=== PATIENT | female | born 1955 | race Caucasian/White ===

== ENCOUNTER → 2016-12-15 | Outpatient (CLI) | payer OTHER ==
[2015-10-09 12:19] VITALS: BP 90/48
[~2016-12-15] MED LIST: ASCO500C PO; CELE200C PO; CIPR250T PO; CYAN10005 PO; CYAN500T PO; DOCU50CA9 PO; FAMO40TA4 PO; FERR-26 PO; LISI10TA2 PO; OXYC-323 PO; Oxycodone Hcl/Acetaminophen PO; PIPE2.257 IV; PIPE4.5F2 IV; RANI150C PO; SENN8.6T11 PO; SERT100T8 PO
--- NOTE | 2016-12-16 20:48 | SLEEP ---
DATE OF STUDY: ATTENDING PHYSICIAN: Fredi Holm MD DATE OF STUDY: 12/15/2016 Laura is 61 years old who weighs 290 pounds with a BMI of 54. Foosland score was 7. Sleep study was performed at [facility]. During the night study, the patient spent 434 minutes in bed and slept for 354 minutes with a sleep efficiency of 80%. Sleep latency was 30 minutes with an absent REM sleep. Overall, sleep architecture showed increased stage 1 and stage 2 sleep, normal slow wave and absent REM sleep. During the night of study, the patient had 6 obstructive apneas, no mixed or central apneas. There were 3 hypopneas. The patient's apnea hypopnea index was 2 per hour. Supine index 1 per hour and absent REM AHI due to lack of REM sleep. Review of nocturnal oximetry study revealed a mean oxygen saturation of 96% with lowest of 88%. PLMS were seen at the index of 96 per hour and 5 per hour caused EEG arousals. EKG monitoring revealed average heart rate of 78 beats per minute. No sustained arrhythmias were observed. Due to low AHI, the patient did not meet the split night criteria for CPAP initiation. IMPRESSION: 1. No clinically significant sleep disordered breathing. 2. No clinically significant nocturnal hypoxia. 3. Severe PLMS at an index of 96 per hour and 5 per hour caused EEG arousals. RECOMMENDATIONS: 1. The patient did not meet the split night criteria for CPAP initiation. 2. Weight loss is strongly advised. 3. Avoid [employer] depressants. 4. The patient's PLMS can be treated with dopaminergic agonist agents if patient is clinically symptomatic. The patient should also be further evaluated for symptoms of restless legs during the day. PARK PERDOMO MD DR: MARA/sarita JOB#: [id number] / [id number]
== END | disposition home or self-care (01) ==
LOC: SLPLAB 18:40
PROVIDERS: ATTEND Internal Medicine Critical Care Medicine
DX: G47.33 Obstructive sleep apnea (adult) (pediatric) (principal)
CPT/HCPCS: 95810

== ENCOUNTER → 2017-05-11 | Outpatient (CLI) | payer OTHER ==
[2015-10-09 12:19] VITALS: BP 90/48
--- NOTE | 2017-05-12 10:44 | RAD ---
DATE: 05/12/2017. EXAM: MAMMO JERE SCREENING BILATERAL. HISTORY: Routine mammographic screening. COMPARISON: 04/12/2016, 04/28/2015. This study was interpreted with the benefit of Computerized Aided Detection (CAD). FINDINGS: The breast parenchyma heterogeneously dense, which could reduce sensitivity of mammography. There are scattered calcifications on the right greater than left, some of which form clusters. These are stable. A coarse calcifications bilaterally on the right is stable. There are no suspicious masses, microcalcifications or architectural distortion. BI-RADS CATEGORY: 2 BENIGN FINDING(S). RECOMMENDED FOLLOW-UP: 12M 12 MONTH FOLLOW-UP. PQRS compliance statement: Patient information was entered into a reminder system with a target due date 05/12/2018 for the next mammogram. Mammography is a sensitive method for finding small breast cancers, but it does not detect them all and is not a substitute for careful clinical examination. A negative mammogram does not negate a clinically suspicious finding and should not result in delay in biopsying a clinically suspicious abnormality. "Our facility is accredited by the [employer] Mammography Program."
== END | disposition home or self-care (01) ==
LOC: KCIC MAMMO 12:24
PROVIDERS: ATTEND Obstetrics & Gynecology
DX: Z12.31 Encounter for screening mammogram for malignant neoplasm of breast (principal)
CPT/HCPCS: 77063; G0202; 77067

== ENCOUNTER → 2018-01-31 | Day surgery (SDC) | payer OTHER ==
[~2018-01-31] MED LIST changes: -ASCO500C PO; -CELE200C PO; -CIPR250T PO; -CYAN10005 PO; -CYAN500T PO; -DOCU50CA9 PO; -FAMO40TA4 PO; -FERR-26 PO; +LIDOCAINE 1% PF 2 ML VIAL. ID; -LISI10TA2 PO; +ONDANSETRON PF 4 MG/2 ML VIAL. IV; -OXYC-323 PO; -Oxycodone Hcl/Acetaminophen PO; -PIPE2.257 IV; -PIPE4.5F2 IV; +PROCHLORPERAZINE 10 MG/2 ML VIAL. IV; +PROPOFOL 20 ML IV; -RANI150C PO; -SENN8.6T11 PO; -SERT100T8 PO; +fentaNYL PF VIAL 100 MCG/2 ML VIAL IV
[2018-01-31] MEDS: IV RINGERS,LACTATED 1000ML 1,000 ML IV (08:49)
== END | disposition home or self-care (01) ==
LOC: ENDOS 08:18
DX: K74.69 Other cirrhosis of liver (principal); K21.9 Gastro-esophageal reflux disease without esophagitis; E66.01 Morbid (severe) obesity due to excess calories; D69.6 Thrombocytopenia, unspecified; F32.9 Major depressive disorder, single episode, unspecified; F41.9 Anxiety disorder, unspecified; D64.9 Anemia, unspecified; I10 Essential (primary) hypertension; D50.9 Iron deficiency anemia, unspecified; Z87.19 Personal history of other diseases of the digestive system; Z79.899 Other long term (current) drug therapy; Z88.6 Allergy status to analgesic agent
CPT/HCPCS: 43235; J2704

== ENCOUNTER → 2018-02-02 | Outpatient (CLI) | payer OTHER | END | disposition home or self-care (01) | LOC: US 07:52 | DX: R18.8 Other ascites (principal) | CPT/HCPCS: 76705 ==

== ENCOUNTER → 2018-02-16 | Outpatient (CLI) | payer OTHER ==
[2018-02-16] MEDS: IOHEXOL 300 MG/ML 100ML VIAL. IV (08:45)
[2018-02-16] MEDS: IOHEXOL 240 MG/ML 50ML VIAL. PO (08:45)
== END | disposition home or self-care (01) ==
LOC: CT 08:27
DX: J90 Pleural effusion, not elsewhere classified (principal); M47.896 Other spondylosis, lumbar region; I10 Essential (primary) hypertension; J45.909 Unspecified asthma, uncomplicated; R91.1 Solitary pulmonary nodule; R16.1 Splenomegaly, not elsewhere classified
CPT/HCPCS: 74177; Q9966; Q9967

== ENCOUNTER → 2018-07-06 | Outpatient (CLI) | payer OTHER ==
[2018-01-31 09:46] VITALS: BP 122/57
[~2018-07-06] MED LIST changes: +ASCO500C PO; +CELE200C PO; +CIPR250T PO; +CYAN10005 PO; +CYAN500T PO; +DOCU50CA9 PO; +FAMO40TA4 PO; +FERR325T14 PO; -LIDOCAINE 1% PF 2 ML VIAL. ID; +LISI10TA2 PO; -ONDANSETRON PF 4 MG/2 ML VIAL. IV; +OXYC-323 PO; +Oxycodone Hcl/Acetaminophen PO; +PIPE2.257 IV; +PIPE4.5F2 IV; -PROCHLORPERAZINE 10 MG/2 ML VIAL. IV; -PROPOFOL 20 ML IV; +RANI150C PO; +SENN8.6T11 PO; +SERT100T8 PO; +VITA400C36 PO; -fentaNYL PF VIAL 100 MCG/2 ML VIAL IV
--- NOTE | 2018-07-06 16:23 | KCIC ---
Bilateral digital screening mammograms with 3-D tomosynthesis: Reason for examination: Routine screening. Comparison is made to previous studies dated 05/11/2017 and 04/12/2016. Bilateral mammograms in CC and oblique projections were obtained with 2-D imaging and 3-D tomosynthesis imaging on a Siemens Inspiration unit and reviewed on the workstation. Interpretation was made with the benefit of CAD. The skin and nipples show no abnormalities. No abnormal axillary lymph nodes are seen. The breast parenchyma is heterogeneously dense. (Breast density: Category C.) There continue to be small subcentimeter parenchymal densities which are unchanged. There are no new dominant masses, suspicious calcifications or architectural distortion. Benign appearing clustered and scattered calcifications are again present. Impression: No evidence of malignancy. Recommend routine screening. Your patient's mammogram demonstrates that she has dense breast tissue (breast density category C or D), which could hide abnormalities, and if she has other risk factors for breast cancer that have been identified, she might benefit from supplemental screening tests that may be suggested by you as her ordering physician. Dense breast tissue, in and of itself, is a relatively common condition. Therefore, this information is not provided to cause undue concern, but rather to raise your awareness and to promote discussion with your patient regarding the presence of other risk factors, in addition to dense breast tissue. Your patient's mammography results will be sent to her. BI-RAD Category 2: Benign. "Our facility is accredited by the [employer] Mammography Program." This patient's information has been entered into a reminder system for the patient to be notified with the results of her examination and a target date for the next mammogram. Electronically signed by: Ginny Gamez MD (07/06/2018 4:20 PM) [facility]
== END | disposition home or self-care (01) ==
LOC: KCIC MAMMO 09:53
PROVIDERS: ATTEND Internal Medicine
DX: Z12.31 Encounter for screening mammogram for malignant neoplasm of breast (principal); I10 Essential (primary) hypertension; K21.9 Gastro-esophageal reflux disease without esophagitis; Z72.0 Tobacco use; Z90.710 Acquired absence of both cervix and uterus; Z86.2 Personal history of diseases of the blood and blood-forming organs and certain disorders involving the immune mechanism; Z87.19 Personal history of other diseases of the digestive system; Z88.8 Allergy status to other drugs, medicaments and biological substances; Z88.5 Allergy status to narcotic agent; Z88.6 Allergy status to analgesic agent; Z88.1 Allergy status to other antibiotic agents
CPT/HCPCS: 77063; 77067

== ENCOUNTER → 2018-07-25 | Outpatient (CLI) | payer OTHER ==
[2018-01-31 09:46] VITALS: BP 122/57
[~2018-07-25] MED LIST changes: +CONTRAST GIVEN. MC PRN; +IOHEXOL 300 MG/ML 100ML VIAL. IV ONE
--- NOTE | 2018-07-25 13:14 | KCIC ---
CT CHEST W/CONTRAST Indication: Lung nodule Technique: Postcontrast CT imaging was performed of the chest, multiplanar reconstruction images submitted. One or more of the following individualized dose reduction techniques were utilized for this examination: 1. Automated exposure control 2. Adjustment of the mA and/or kV according to patient size 3. Use of iterative reconstruction technique. Contrast: 95 cc Omnipaque 300 Comparison: CT abdomen pelvis exam February 16, [address] May 02, 2015 Findings: There is some motion degradation. There is again right shoulder arthroplasty, associated artifact. There is no pleural or pericardial effusion, pneumothorax, infiltrate. Major airways are patent. Previously seen subpleural density of the left lower lobe is no longer visualized. There is no suspicious pulmonary nodularity. There is no significant lymphadenopathy of the chest. There is nodular margin of the liver and splenomegaly as seen on previous abdomen CT. There are varices. There is no significant free fluid of the visualized abdomen. IMPRESSION: 1. There is no suspicious pulmonary nodularity or pleural fluid. 2. There are again findings of cirrhosis and portal hypertension. Electronically signed by: Christophe Larry MD (07/25/2018 1:10 PM) [id number]
--- NOTE | 2018-07-25 15:22 | KCIC ---
EXAM: Abdomen sonogram. HISTORY: Cirrhosis. TECHNIQUE: Sonographic imaging of the abdomen was performed. COMPARISON: CT dated 02/16/2018. FINDINGS: There is hepatic surface nodularity and decreased liver size due to cirrhosis. No focal hepatic lesion is seen. The common bile duct is normal in caliber. The gallbladder is surgically absent. The kidneys are normal in size. There is no hydronephrosis. The pancreatic tail, aorta and inferior cava are partially obscured due to bowel gas. The spleen is mildly enlarged, measuring 13.6 cm. IMPRESSION: 1. Hepatic cirrhosis. No hepatic lesion is seen symmetrically. 2. Cholecystectomy. 3. Splenomegaly. 4. Partially obscured midline structures due to bowel gas. Electronically signed by: Coty Raman MD (07/25/2018 3:18 PM) [email or web address]
== END | disposition home or self-care (01) ==
LOC: KCIC US 09:10
PROVIDERS: ATTEND Internal Medicine
DX: K74.60 Unspecified cirrhosis of liver (principal); K76.6 Portal hypertension; K76.89 Other specified diseases of liver; R16.1 Splenomegaly, not elsewhere classified; I10 Essential (primary) hypertension; K21.9 Gastro-esophageal reflux disease without esophagitis; Z88.1 Allergy status to other antibiotic agents; Z88.5 Allergy status to narcotic agent; Z88.6 Allergy status to analgesic agent; Z88.8 Allergy status to other drugs, medicaments and biological substances; Z86.2 Personal history of diseases of the blood and blood-forming organs and certain disorders involving the immune mechanism; Z87.19 Personal history of other diseases of the digestive system; Z90.710 Acquired absence of both cervix and uterus
CPT/HCPCS: 71260; 76700; Q9967

== ENCOUNTER → 2019-01-25 | Outpatient (CLI) | payer OTHER ==
[2018-01-31 09:46] VITALS: BP 122/57
[~2019-01-25] MED LIST changes: -CONTRAST GIVEN. MC PRN; -CYAN500T PO; +CYAN500T2 PO; -IOHEXOL 300 MG/ML 100ML VIAL. IV ONE; -OXYC-323 PO; +OXYC1TAB15 PO
--- NOTE | 2019-01-25 09:49 | KCIC ---
CLINICAL HISTORY: Nonalcoholic steatohepatitis, cirrhosis, history of cholecystectomy. COMPARISON: 07/25/2018 TECHNIQUE: Ultrasound of the upper abdomen was performed. FINDINGS: The liver measures 13.2 cm in length in the right mid clavicular line. Mild nodularity of the hepatic margin consistent with hepatic cirrhosis. There are no focal liver lesions. Flow is identified in the hepatic veins and portal veins with normal waveforms. There has been a cholecystectomy. The common bile duct measures 4.4 millimeter. The spleen is enlarged measuring up to 13.1 cm in length. The head and body of the pancreas are unremarkable. The tail is obscured by intestinal gas.. The right kidney measures 11.5 cm in bipolar length. Left kidney measures 12.7 cm in length. No focal renal lesion. No hydronephrosis. Normal renal cortical echogenicity. Visualized portions of the abdominal aorta and inferior vena cava are unremarkable. There is no free fluid in the upper abdomen. IMPRESSION: 1. The liver is nodular in contour consistent with hepatic cirrhosis. No definite liver lesion is seen. 2. Splenomegaly. 3. There has been a cholecystectomy. Electronically signed by: Anjum Storey MD (01/25/2019 9:46 AM) [id number]
== END | disposition home or self-care (01) ==
LOC: KCIC US 07:58
PROVIDERS: ATTEND Nurse Practitioner Adult Health
DX: R16.1 Splenomegaly, not elsewhere classified (principal); K75.81 Nonalcoholic steatohepatitis (NASH); Z90.49 Acquired absence of other specified parts of digestive tract
CPT/HCPCS: 76700

== ENCOUNTER → 2019-07-10 | Outpatient (CLI) | payer OTHER ==
[2018-01-31 09:46] VITALS: BP 122/57
[~2019-07-10] MED LIST changes: +CYAN-25 PO; -CYAN10005 PO; -CYAN500T2 PO; +CYAN500T52 PO
--- NOTE | 2019-07-10 15:40 | KCIC ---
Bilateral digital screening mammograms with 3-D tomosynthesis: Reason for examination: Routine screening. Comparison is made to previous studies dated back to 04/12/2016. Bilateral mammograms in CC and oblique projections were obtained with 2-D imaging and 3-D tomosynthesis imaging on a Siemens Inspiration unit and reviewed on the workstation. Interpretation was made with the benefit of CAD. The skin and nipples show no abnormalities. No abnormal axillary lymph nodes are seen. The breast parenchyma is heterogeneously dense. (Breast density: Category C.) There appears to be some focal nodularity present in the 5:00 B position of the right breast. Further evaluation with coned compression views and ultrasound is recommended. There are no other new dominant masses, suspicious calcifications or architectural distortion. Benign calcifications are present. Impression: Focal nodularity at the 5:00 B position of the right breast. Recommend further evaluation with coned compression views and ultrasound. Your patient's mammogram demonstrates that she has dense breast tissue (breast density category C or D), which could hide abnormalities, and if she has other risk factors for breast cancer that have been identified, she might benefit from supplemental screening tests that may be suggested by you as her ordering physician. Dense breast tissue, in and of itself, is a relatively common condition. Therefore, this information is not provided to cause undue concern, but rather to raise your awareness and to promote discussion with your patient regarding the presence of other risk factors, in addition to dense breast tissue. Your patient's mammography results will be sent to her. BI-RAD Category 0: Incomplete. Needs additional imaging evaluation. "Our facility is accredited by the [employer] Mammography Program." This patient's information has been entered into a reminder system for the patient to be notified with the results of her examination and a target date for the next mammogram. Electronically signed by: Ginny Gaemz MD (07/10/2019 3:37 PM) [id number]
== END | disposition home or self-care (01) ==
LOC: KCIC MAMMO 08:34
PROVIDERS: ATTEND Internal Medicine
DX: Z12.31 Encounter for screening mammogram for malignant neoplasm of breast (principal); N64.89 Other specified disorders of breast
CPT/HCPCS: 77063; 77067

== ENCOUNTER → 2019-07-20 | Outpatient (CLI) | payer OTHER ==
[2018-01-31 09:46] VITALS: BP 122/57
[~2019-07-20] MED LIST changes: +VITA-8 PO; -VITA400C36 PO
--- NOTE | 2019-07-20 16:28 | KCIC ---
Right breast diagnostic digital mammograms: Reason for examination: Nodular density on screening mammogram. Comparison is made to mammographic exam dated 07/10/2019. Coned compression views were obtained in CC and lateral projections. The area of nodularity does not appear to persists and may have represented superimposed tissues. IMPRESSION: No definite nodule persists with coned compression views. This may have represented superimposition of tissues. Ultrasound to follow. BI-RADS Category 0: Incomplete. Needs additional imaging evaluation. Right breast ultrasound: Right whole breast ultrasound including evaluation of all 4 quadrants and the retroareolar and axillary regions of the right breast was performed. There is no discrete cystic or solid nodules seen. No abnormal appearing lymph nodes are seen in the axilla. IMPRESSION: No focal abnormalities evident in the right breast. Recommend reevaluation of the right breast with mammograms and ultrasound in 6 months. BI-RADS Category 3: Probably Benign. "Our facility is accredited by the [employer] Mammography Program." This patient's information has been entered into a reminder system for the patient to be notified with the results of her examination and a target date for the next mammogram. Electronically signed by: Ginny Gamez MD (07/20/2019 4:26 PM) [facility]
== END | disposition home or self-care (01) ==
LOC: KCIC MAMMO 10:05
PROVIDERS: ATTEND Internal Medicine
DX: R92.1 Mammographic calcification found on diagnostic imaging of breast (principal)
CPT/HCPCS: 76641; 77065

== ENCOUNTER → 2020-09-22 | Outpatient (CLI) | payer MEDICARE ==
[2020-08-06 11:00] VITALS: BP 132/68
[~2020-09-22] MED LIST changes: +ACET325T9 PO; +CYAN500T51 PO; -CYAN500T52 PO; +CYCL10TA2 PO; +FAMO20TA5 PO; +FERR325T72 PO; +FURO40TA4 PO; +LACT20SO PO; +OXYC5TAB4 PO; +POLY17PO28 PO; +RIFA550T4 PO; +SENN-22 PO; +SPIR25TA PO; +VITA10003 PO
--- NOTE | 2020-09-22 10:38 | KCIC ---
EXAM: Right knee, 2 views. HISTORY: Pain. COMPARISON: None. FINDINGS: 2 views of the right knee are obtained. There is a right knee arthroplasty in expected position. There is partial visualization of intramedullary willi within the right femur. There is no evidence of arthroplasty loosening. There is a small right knee effusion. IMPRESSION: 1. Right knee arthroplasty in expected position. 2. Small right knee effusion. Electronically signed by: Coty Raman MD (09/22/2020 10:35 AM) [facility]
== END ==
LOC: KCIC 10:03
PROVIDERS: ATTEND Internal Medicine
DX: M25.461 Effusion, right knee (principal); Z96.611 Presence of right artificial shoulder joint
CPT/HCPCS: 73560